=== PATIENT | male | born 1965 | race Hispanic/Latino ===

== ENCOUNTER 2020-06-27 11:44 | Outpatient (CLI) | payer BC ==
--- NOTE | 2020-06-27 18:48 | RAD ---
TWO VIEWS OF THE RIGHT KNEE: 06/27/20 COMPARISON: None. HISTORY: Right knee pain for two months. FINDINGS: Two views of the right knee shows no evidence of acute fracture or dislocation. There is a very small patellofemoral osteophyte along the inferior aspect of the patella. No knee effusion is seen. IMPRESSION: Minimal patellofemoral osteoarthritis. POS: EAA
--- NOTE | 2020-06-27 18:48 | RAD ---
THREE VIEWS OF THE RIGHT SHOULDER: 06/27/20 HISTORY: Shoulder pain for two months. FINDINGS: Three views of the right shoulder shows no evidence of acute fracture or dislocation. No significant degenerative changes are seen. No soft tissue swelling is seen. The visualized right thorax is unrema rkable. IMPRESSION: No evidence of acute osseous abnormality. POS: EAA
== END 2020-06-27 11:45 | disposition home or self-care (01) ==
LOC: BICRAD 11:44
PROVIDERS: ATTEND Internal Medicine Rheumatology
DX: M75.101 Unspecified rotator cuff tear or rupture of right shoulder, not specified as traumatic (principal); M17.11 Unilateral primary osteoarthritis, right knee

== ENCOUNTER 2020-07-24 10:56 | Emergency (ER) | payer BC, SELFPAY ==
[2020-07-24 11:44] LABS: #Lymphocytes 0.9 thou/uL (1.20-3.40); #Monocytes 1.1 thou/uL (0.11-0.59); #Neutrophils 7.9 thou/uL (1.40-6.50); %Basophils 0.3 % (0.0-1.0); %Eosinophils 0.4 % (0.0-10.0); %Lymphocytes 9.3 % (21.0-51.0); %Monocytes 10.8 % (0.0-10.0); %Neutrophils 79.2 % (42.0-75.0); Hemoglobin 15.9 g/dL (14.0-18.0); Mean Corpuscular HGB CONC 33.7 g/dL (32.0-36.0); Mean Corpuscular Hemoglobin 30.9 pg (27.0-31.0); Mean Corpuscular Volume 91.7 fL (78.0-98.0); Platelet Count 217 thou/uL (130-400); Red Blood Cell (RBC) Count 5.15 mill/uL (4.70-6.10)
[2020-07-24 12:16] LABS: ALT (SGPT) 23 U/L (8-55); AST (SGOT) 22 U/L (5-34); Albumin 4.3 g/dL (3.5-5.0); Alkaline Phosphatase 69 U/L (40-110); Anion Gap 15 mmol/L (10-20); BUN (Urea Nitrogen) 15 mg/dL (8.4-25.7); Bilirubin, Total 1.3 mg/dL (0.2-1.2); Calc. Creatinine Clearance 0 mL/min (70-130); Calcium 9.2 mg/dL (7.8-10.44); Carbon Dioxide 25 mmol/L (22-29); Chloride 98 mmol/L (98-107); Glucose 136 mg/dL (70-105); Lipase 13 U/L (8-78); Potassium 3.6 mmol/L (3.5-5.1); Protein, Total 7.3 g/dL (6.0-8.3); Sodium 134 mmol/L (136-145)
[2020-07-24] MEDS ORDERED: Morphine 4 MG/ML VIAL ONE (12:46)
[2020-07-24] MEDS ORDERED: Iopamidol-370 76% 500 ML 1 ML ONE (12:51)
[2020-07-24] MEDS ORDERED: Ondansetron PF 4 MG/2 ML Vial ONE (13:11)
[2020-07-24] MEDS ORDERED: Ketorolac Tromethamine 30 MG/ML VIAL ONE (13:14)
--- NOTE | 2020-07-24 13:16 | CT ---
EXAM: CT Abdomen Pelvis W Con PROVIDED CLINICAL HISTORY: Abdominal pain COMPARISON: None FINDINGS: The visualized lung bases are free of significant opacity. There is moderate right-sided hydronephrosis and proximal hydroureter to the level of a 6 mm proximal right ureteral calculus. There is diminished enhancement of the right kidney globally with respect to the left. There is mild left renal pelvic caliectasis and left ureterectasis. There is a 3 mm calc ification either immediately adjacent to or within the distal left ureter at the UVJ. No additional urinary tract calculi are evident. The liver, spleen, pancreas and adrenal glands appear unremarkable. There is no bowel dilatation, inflammatory fat stranding, free fluid or free air apparent. There is n o evidence for appendicitis. The regional major vascular structures appear unremarkable with the exception of minimal vascular suki cification. The osseous structures demonstrate no concerning lytic or blastic lesions. IMPRESSION: 1. Obstructing 6 mm right proximal ureteral calculus. 2. 3 mm calcification either immediately adjacent to or within the distal left ureter near the UVJ. N o high-grade obstructive changes evident on the left.
[2020-07-24 14:25] LABS: Bacteria/HPF None Seen HPF (None Seen); Bilirubin Negative (Negative); Blood, Urine 3+ (Negative); Clarity Clear (Clear); Glucose, Urine (Dipstick) Normal (Negative); Ketone, Urine 20 mg/dL (Negative); Leukocyte Negative Leu/uL (Negative); Nitrite Negative (Negative); Protein, Urine (Dipstick) Negative (Neg-Trace); RBC/HPF 21-50 HPF (0-3); Specific Gravity, Urine 1.031 (1.002-1.036); Squamous Epithelial None Seen HPF (0-3); Urobilinogen Normal mg/dL (Less than 2); pH, Urine 5.5 (5.0-9.0)
== END 2020-07-24 14:21 | disposition home or self-care (01) ==
LOC: ERS 10:56
DX: N13.2 Hydronephrosis with renal and ureteral calculous obstruction (principal)
CPT/HCPCS: 36415; 74177; 80053; 81003; 81015; 83690; 85025; 96374; 96375; J1885; J2270; J2405; Q9967